=== PATIENT | male | born 2000 | race American Indian/Alaskan Native ===

== ENCOUNTER 2022-05-17 03:10 | Emergency (ER) | payer MEDICAID ==
--- NOTE | 2022-05-17 04:52 | XRay Report ---
XR chest routine 2V INDICATION / CLINICAL INFORMATION: SOB, cough. COMPARISON: None available. FINDINGS: SUPPORT DEVICES: None. HEART /PULMONARY VASCULATURE: No significant abnormality. LUNGS / PLEURA: No significant pulmonary or pleural abnormality. No pneumothorax. ADDITIONAL FINDINGS: No significant additional findings. IMPRESSION: 1. No acute findings. Signer Name: London De Luna MD Signed: 05/17/2022 4:48 AM Workstation Name: [place] [id number]
[2022-05-17] MEDS ORDERED: ALBUTEROL 2.5 MG/3 ML NEBU IH ONE ×2 (07:59→09:11)
[2022-05-17 08:29] VITALS: BP 109/79
--- NOTE | 2022-05-17 08:40 | Emergency Department Report ---
Minor Respiratory - HPI Chief Complaint: Upper Respiratory Infection Stated Complaint: FLU SX/WHEEZING Time Seen by Provider: 05/17/22 07:59 ED Review of Systems ROS: Stated complaint: FLU SX/WHEEZING Other details as noted in HPI Comment: All other systems reviewed and negative ED Past Medical Hx - Past Medical History Previous Medical History?: Yes Hx Asthma: Yes Additional medical history: adhd / hearing loss - Surgical History Past Surgical History?: Yes Additional Surgical History: ear tubes - Family History Family history: no significant - Social History Smoking Status: Unknown if ever smoked Substance Use Type: Alcohol - Medications Home Medications: Home Medications Medication Instructions Recorded Confirmed Last Taken Type ALBUTEROL NEB's [Proventil 0.083% 2.5 mg IH TID PRN #1 box 05/17/22 Unknown Rx NEBS] Albuterol Mdi (or & Nicu Only) 2 puff IH QID PRN #1 inhalation 05/17/22 Unknown Rx [ProAir HFA Inhaler] Fluticasone [Flonase] 1 spray NS QDAY #1 bottle 05/17/22 Unknown Rx predniSONE [Deltasone] 20 mg PO DAILY #5 tablet 05/17/22 Unknown Rx Minor Respiratory Exam - Exam General: Vital signs noted. No distress. Alert and acting appropriately. HEENT: Yes Moist Mucous Membranes, No Pharyngeal Erythema, No Pharyngeal Exudates, No Rhinorrhea, No Conjuctival Injection, No Frontal Tenderness, No Maxillary Tenderness Ear: Neither TM Bulge, Neither TM Erythema, Neither EAC Pain, Neither EAC Discharge Neck: Yes Supple, No Adenopathy Lungs: Yes Good Air Exchange, Yes Wheezes, No Ronchi, No Stridor, No Cough, No Labored Respirations, No Retractions, No Use of Accessory Muscles, No Other Abnormal Lung Sounds Heart: Yes Regular, No Murmur Abdomen: Yes Normal Bowel Sounds, No Tenderness, No Peritoneal Signs Skin: No Rash, No Edema Neurologic: Alert and oriented, no deficits. Musculoskeletal: Unremarkable. ED Course Vital Signs 05/17/22 05/17/22 03:19 08:28 Temperature 99 F 98.4 F Pulse Rate 80 78 Respiratory 18 18 Rate Blood Pressure 126/72 109/79 [Left] O2 Sat by Pulse 99 97 Oximetry ED Medical Decision Making - Radiology Data Radiology results: report reviewed, image reviewed - Medical Decision Making Vital Signs 05/17/22 05/17/22 05/17/22 03:19 08:28 08:36 Temperature 99 F 98.4 F Pulse Rate 80 78 Pulse Rate [ 92 H Anterior Bilateral Throughout] Respiratory 18 18 Rate Respiratory 20 Rate [Anterior Bilateral Throughout] Blood Pressure 126/72 109/79 [Left] O2 Sat by Pulse 99 97 Oximetry DUONEB X 2 SOLUMEDROL IM MOTRIN FOR H/A NO INDICATION FOR ANTIBIOTICS DC HOME WITH DC PLAN OF CARE VERBALIZES UNDERSTANDING OF PLAN OF CARE INCLUDING DIET ACTIVITY MEDS AND FOLLOW UP Critical care attestation.: If time is entered above; I have spent that time in minutes in the direct care of this critically ill patient, excluding procedure time. ED Disposition Clinical Impression: Asthma with acute exacerbation Disposition: HOME / SELF CARE / HOMELESS Is pt being admited?: No Does the pt Need Aspirin: No Condition: Stable Instructions: Asthma, Adult Additional Instructions: MEDS ORDERED TODAY FOLLOW UP WITH PCP FRIDAY TO BE SURE YOU ARE BETTER REFERRAL BELOW DIET AND ACTIVITY TOLERATED Referrals: SWETA MARTINEZ MD [Staff Physician] - 3-5 Days Forms: Work/School Release Form(ED) Time of Disposition: 09:43
[2022-05-17] MEDS ORDERED: IBUPROFEN 800 MG TAB PO ONE (09:11)
[2022-05-17] MEDS ORDERED: methylPREDNISolone Sod Succinate 125 MG/2 ML INJ IM ONE (09:11)
== END 2022-05-17 10:20 | disposition home or self-care (01) ==
LOC: ED 03:10
DX: J45.901 Unspecified asthma with (acute) exacerbation (principal); F10.20 Alcohol dependence, uncomplicated
CPT/HCPCS: 71046; 94640; 96372; 99284; J2930; 94644